=== PATIENT | male | born 1970 | race Caucasian/White ===

== ENCOUNTER → 2024-10-09 15:17 | Outpatient (REF) | payer BC, SELFPAY ==
[2024-10-09 16:25] LABS: Urine Protein < 5 mg/dl
[2024-10-09 16:33] LABS: Microalbumin, Random Urine < 0.6 mg/dl (0.6-1.7)
[2024-10-09 16:39] LABS: Albumin 4.6 g/dl (3.5-5.0); Blood Urea Nitrogen 22 mg/dl (9-20); Calcium 9.6 mg/dl (8.4-10.2); Carbon Dioxide 30 mmol/L (22-30); Chloride 101 mmol/L (98-107); Glucose 97 mg/dl (70-99); Magnesium 2.1 mg/dl (1.6-2.3); Potassium 4.5 mmol/L (3.5-5.1); Sodium 139 mmol/L (135-145); eGFR 59.73
[2024-10-09 16:42] LABS: Intact PTH 50.9 pg/ml (13.6-85.8)
[2024-10-11 15:45] LABS: ANA, IgG Reflex to HEp-2 None Detected (None Detected)
[2024-10-12 03:52] LABS: Arsenic, Blood <10.0 ug/L (<=12.0); Lead - Venous <2.0 ug/dL (<=4.9); Mercury, Blood 2.9 ug/L (<=10.0)
== END ==
LOC: REG 15:17
PROVIDERS: ATTENDING PHYSICIAN Specialist
DX: R79.89 Other specified abnormal findings of blood chemistry (principal)
CPT/HCPCS: 36415; 80069; 82043; 82164; 82175; 82570; 83655; 83735; 83825; 83970; 84156; 84550; 86038